=== PATIENT | female | born 1940 ===

== ENCOUNTER 2020-05-13 07:03 | Outpatient (CLI) | payer MEDICARE ==
[2020-05-13] MEDS ORDERED: REGADENOSON 0.4 MG/5 ML SYRINGE ONE (07:16)
== END 2020-05-13 23:59 | disposition home or self-care (01) ==
LOC: CVU 07:03 → CFH 23:59
PROVIDERS: ATTEND Internal Medicine Cardiovascular Disease
DX: I08.3 Combined rheumatic disorders of mitral, aortic and tricuspid valves (principal); J43.2 Centrilobular emphysema; J84.10 Pulmonary fibrosis, unspecified; I10 Essential (primary) hypertension; R06.02 Shortness of breath
CPT/HCPCS: 71250; 78452; 93017; 93306; 93356; A9502; J2785